=== PATIENT | female | born 1990 | race Two or more races ===

== ENCOUNTER 2024-07-14 10:31 | Emergency (ER) | payer MEDICAID, OTHER ==
[~2024-07-14] VITALS: Ht 167.6 cm; Wt 84.3 kg
--- NOTE | 2024-07-14 11:30 | ED.PDOC ---
HPI (NEURO) HPI Comments 34 y.o female presents to the ED for a chief complaint of dizziness associated with nausea and a generalized head pressure that started one week ago. Patient describes dizziness as room spinning with new onset fluttering sensation to her left ear. Patient mentions her children at home were recently sick but she did not experience similar symptoms as them. She denies any syncopal episodes, vomiting, chest pain, SOB, cough, fever, chills. She denies medical history or allergies. Chief Complaint: Headache Time Seen by MD: 11:21 Primary Care Provider: none Reviewed Notes: Nurses Notes, Medications, Allergies Information Source: Patient Mode of Arrival: Ambulatory Severity: Moderate Dizziness/Weakness Severity: Does not affect activitie Headache Severity: Moderate Timing: Weeks (1) Headache Quality: Other Headache Location: Generalized Onset: At rest Circumstances: Spontaneous Symptoms: Tinnitus History of: None Modifying factors: Nothing Associated Signs and Symptoms: Headache, Nausea Past Medical History PAST MEDICAL HISTORY: Denies Surgical History: Cholecystectomy CONFERENCE ASSISTANT History: No Pertinent CONFERENCE ASSISTANT History Family History Family History: Family hx of DM Social History Smoker: Other (vape ) Alcohol: Occasionally Drugs: Denies Drug Use Lives In: Home Constitutional: denies: chills, diaphoresis, fatigue, fever, malaise, sweats, weakness, others EENTM: reports: ear ringing (left ear ); denies: blurred vision, double vision, ear bleeding, ear discharge, ear drainage, ear pain, eye pain, eye redness, hearing loss, mouth pain, mouth swelling, nasal discharge, nose bleeding, nose c ongestion, nose pain, photophobia, tearing, throat pain, throat swelling, voice changes, others Respiratory: denies: cough, hemoptysis, orthopnea, SOB at rest, shortness of breath, SOB with excertion, stridor, wheezing, others Cardiovascular: denies: chest pain, dizzy spells, diaphoresis, Dyspnea on exertion, edema, irregular heart beat, left arm pain, lightheadedness, palpitations, PND, syncope, others Gastrointestinal: denies: abdomen distended, abdominal pain, blood streaked bowels, constipated, diarrhea, dysphagia, difficulty swallowing, hematemesis, melena, nausea, poor appetite, poor fluid intake, rectal bleeding, rectal pain, vomiting, others Genitourinary: denies: abnormal vagina bleeding, burning, dyspareunia, dysuria, flank pain, frequency, hematuria, incontinence, pain, , vagina discharge, urgency, others Neurological: reports: dizziness, headache; denies: fainting, left sided numbness, left sided weakness, numbness, paresthesia, pre-existing deficit, right sided numbness, right sided weakness, seizure, speech problems, tingling, tremors, weakness, others Musculoskeletal: denies: back pain, gout, joint pain, joint swelling, muscle pain, muscle stiffness, neck pain, others Integumetry: denies: bruises, change in color, change in hair/nails, dryness, laceration, lesions, lumps, rash, wounds, others Allergic/Immunocompromised: denies: Difficulty Healing, Frequent Infections, Hives, Itching, others Hematologic/Lymphatic: denies: anemia, blood clots, easy bleeding, easy bruising, swollen glands, others Endocrine: denies: excessive hunger, excessive sweating, excessive thirst, excessive urination, flushing, intolerance to cold, intolerance to heat, unexplained weight gain, unexplained weight loss, others Psychiatric: denies: anxiety, bipolar disorder, depression, hopeless, panic disorder, schizophrenia, sleepless, suicidal, others All Other Systems: Reviewed and Negative Physical Exam General Appearance: No Apparent Distress HEENT: Normal ENT Inspection, Pharynx Normal, TMs Normal Neck: Full Range of Motion, Non-Tender, Normal, Normal Inspection Respiratory: Chest Non-Tender, Lungs Clear, No Accessory Muscle Use, No Respiratory Distress, Normal Breath Sounds Cardiovascular: No Edema, No JVD, No Murmur, No Gallop, Normal Peripheral Pulses, Regular Rate/Rhythm Breast Exam: Deferred Gastrointestinal: No Organomegaly, Non Tender, No Pulsatile Mass, Normal Bowel Sounds, Soft Genitalia: Deferred Pelvic: Deferred Rectal: Deferred Extremities: No calf tenderness, Normal capillary refill, Normal inspection, Normal range of motion, Non-tender, No pedal edema Musculoskeletal : Apperance: Normal Neurologic: Alert, consultant teacher II-XII nml as Tested, No Motor Deficits, Normal Affect, Normal Mood, No Sensory Deficits Cerebellar Function: Normal Reflexes: Normal Skin: Dry, Normal Color, Warm Lymphatic: No Adenopathy Was a procedure done? Was a procedure done?: No Differential Diagnosis (SZ) Seizure: N/A General Weakness: Dehydration, Electrolyte imbalance, Vertigo: central, Vertigo: peripheral, Vestibular neuronitis Headache: Cluster, Migraine, Sinusitis X-Ray, Labs, Meds, VS Vital Signs Date Time Temp Pulse Resp B/P (MAP) Pulse Ox O2 Delivery O2 Flow Rate FiO2 07/14/24 11:50 98.0 96 17 104/69 (81) 97 98.0 07/14/24 10:54 97.9 66 19 97/65 (76) 97 Lab Test 07/14/24 11:26 Range/Units Urine Color Light-yellow Yellow Urine Clarity Clear Clear Urine pH 5.0 5.0-9.0 Urine Specific [place] 1.011 1.001-1.035 Urine Protein Negative Negative Urine Ketones Negative Negative Urine Blood Negative Negative /uL Urine Nitrite Negative Negative Urine Bilirubin Negative Negative Urine Urobilinogen Normal Negative mg/dL Urine Leukocyte Esterase Trace Negative /uL Urine RBC 1 0 - 4 /hpf Urine WBC 3 0 - 5 /hpf Urine Squamous Epithelial Cells Mod <5 /hpf Urine Bacteria Few H None Seen /hpf Urine Mucus Few None Seen Urine Glucose Normal Normal mg/dL Current Medications Medications (Trade) Dose Ordered Sig/Flora Route Start Time Stop Time Status Last Admin Ondansetron HCl (Zofran Po) 4 mg ONCE ONCE PO 07/14/24 11:30 07/14/24 11:31 DC 07/14/24 11:47 The the urine test is negative The patient was given Zofran as a prescription The patient was also given Zofran 4 mg by mouth The patient will return to the emergency department's condition worsens The patient's diagnosis is viral syndrome The patient will follow up with the primary care doctor Time of 1ST Reevaluation: 11:29 Reevaluation 1ST: Unchanged Patient Education/Counseling: Diagnosis, Treatment, Prognosis, Need For Follow Up Family Education/Counseling: No Family Present Departure 1 Departure Time of Disposition: 13:18 Impression: Primary Impression: Viral syndrome Disposition: 01 HOME / SELF CARE / HOMELESS Condition: Fair e-Prescriptions Ondansetron Odt 4MG Tab (ZOFRAN PO) 4 Mg Tb 4 MG PO Q8HP PRN for 5 Days, #15 TAB ODT TAB-DISSOLVE IN MOUTH, THEN SWALLOW Prov: CJ MATHEW MD 07/14/24 Discharged With: Self Critical Care Note Critical Care Time?: No Stability Stability form required: No I personally scribed for CJ MATHEW MD ([email or web address]) on 07/14/24 at 11:30. Electronically submitted by Kemi Ordaz ([facility]). CJ MATHEW MD Jul 14, 2024 11:30
[2024-07-14] MEDS: ONDANSETRON ODT 4 MG TAB PO ONE (11:47)
[2024-07-14 13:10] LABS: Urine Bacteria FEW /hpf (None Seen); Urine Blood Negative /uL (Negative); Urine Clarity Clear (Clear); Urine Color Light-Yellow (Yellow); Urine Mucus FEW (None Seen); Urine Protein, UAD Negative (Negative); Urine Specific Gravity 1.011 (1.001-1.035); Urine Squamous Epithelial Cell MOD /hpf (<5); Urine Urobilinogen Normal (Negative); Urine WBC 3 /hpf (0 - 5)
[2024-07-14] MEDS ORDERED: ZOFR4T PO (13:19)
--- NOTE | 2024-07-14 14:06 | DVH ---
EXAM: CT HEAD WITHOUT CONTRAST HISTORY: davila COMPARISON: None TECHNIQUE: Axial images were obtained and reformatted in coronal and sagittal planes. All CT scans at this medical facility are performed using dose modulation techniques as appropriate t o a performed exam including the following: Automated exposure control was utilized; adjustment of th e MA and/or KV according to patient size; and use of iterative reconstruction technique. CT Dose: CTDI volume is 53.81 mGy. Dose-length product is 971.98 mGy*cm FINDINGS: Supratentorial Region: No evidence for large acute territorial ischemia. No intracranial hemorrhage is noted. Posterior Fossa: No acute abnormality. Brainstem: Unremarkable. Sellar/Suprasellar Region: Unremarkable. Ventricles, Cisterns, Sulci: Age-appropriate. Orbits: Unremarkable. Paranasal Sinuses: Unremarkable. Mastoid Air Cells: Unremarkable. Vasculature: Unremarkable. Bones/Soft Tissues: No acute abnormality. Other: None. IMPRESSION: 1. No acute intracranial process.
[2024-07-14 15:00] VITALS: BP 112/63; PULSE 53; RESP 16; TEMP 97.8; O2SAT 99
[2024-07-14] MEDS ORDERED: CARB1DRO18 OT (17:36)
== END 2024-07-14 16:01 | disposition home or self-care (01) ==
LOC: ER 10:31
DX: B34.9 Viral infection, unspecified (principal); F17.290 Nicotine dependence, other tobacco product, uncomplicated; Z90.49 Acquired absence of other specified parts of digestive tract
CPT/HCPCS: 70450; 81001; 99284; Q0162